=== PATIENT | female | born 1995 | race Hispanic/Latino ===

== ENCOUNTER 2022-05-10 11:47 | Emergency (ER) | payer OTHER ==
[~2022-05-10] VITALS: Ht 152.4 cm; Wt 47.2 kg
[2022-05-10] MEDS ORDERED: ONDANSETRON HCL 4 MG ORAL DISINTEGRATING TAB PO ONE (12:00)
[2022-05-10] MEDS ORDERED: ACETAMINOPHEN 325 MG TAB PO ONE (12:00)
[2022-05-10 12:25] LABS: CLARITY,URINE SL CLOUDY (CLEAR); COLOR,URINE YELLOW (YELLOW); KETONES,URINE NEGATIVE (NEGATIVE); LEUKOCYTE ESTERASE ,URINE NEGATIVE (NEGATIVE); NITRITE,URINE NEGATIVE (NEGATIVE); PROTEIN,URINE DIPSTICK NEGATIVE (NEGATIVE); URINE UROBILINOGEN 0.2 mg/dL (0.2 - 1)
[2022-05-10 12:34] LABS: EPITHELIAL CELLS,URINE MANY /LPF
[2022-05-10 12:35] LABS: BACTERIA,URINE MODERATE /HPF
[2022-05-10] MEDS ORDERED: MACROBID 100 M100 MG PO (14:51)
[2022-05-10] MEDS ORDERED: ONDANSETRON ODT4 MG PO (14:52)
[2022-05-10 15:16] VITALS: BP 102/69
== END 2022-05-10 15:00 | disposition home or self-care (01) ==
LOC: ER 12:00
DX: O23.11 Infections of bladder in pregnancy, first trimester (principal)
CPT/HCPCS: 76801; 76817; 81001; 99283; Q0162